=== PATIENT | female | born 1975 | race Caucasian/White ===

== ENCOUNTER 2016-07-23 13:27 | Inpatient (IN) | payer OTHER, SELFPAY ==
--- NOTE | ~2016-07-23 | HP ---
History And Physical [place] [address] [facility] [place] [address] NAME: CARINA ALEJO : 73 STATUS : ADM IN [facility]#: [id number] AGE: 41 ADM/REG DATE : 07/23/16 MR#: [id number] REPORT SERV DATE: 07/23/16 DICTATED BY: FAMILIA MEDEIROS DATE: 07/23/16 REPORT STATUS : Draft TRANSCRIBED BY: MODChristopher DATE: 07/23/16 DATE OF ADMISSION: 07/23/2016 CHIEF COMPLAINT: Chest pain. BRIEF HISTORY OF PRESENT ILLNESS: The patient is a 41-year-old white female, discharged yesterday from the Urology Service, status post a left-sided percutaneous nephrostomy tube and ureteral stent with stone extraction, apparently the patient wanted to go home. When she got home, she was in her usual state of health. This morning, she began having shortness of breath and chest pain, and when she came in, she was slightly hypoxic, so a CTA in the emergency room was done of this patient. It revealed multiple segmental filling defects in the right lower lobe, right middle lobe, and left upper lobe, so she has been referred to the Hospitalist Service for further treatment and evaluation. She denies any fever or chills. She has had significant nausea and vomiting. She denies much pain in her chest at this time. She has not had any diarrhea. She had noticed some swelling in her lower extremities. She has not traveled anywhere. She does not use any control pills nor should she smoke. REVIEW OF SYSTEMS: Otherwise, a 12-point review of systems is completely negative. PAST MEDICAL HISTORY: Significant for hypothyroidism, gastroesophageal reflux, hirsutism, obesity, nephrolithiasis, and gastroesophageal reflux. PAST SURGICAL HISTORY: Significant for oral surgery for teeth and recent percutaneous nephrostomy tube. ALLERGIES: CODEINE AND SULFA. HOME MEDICATIONS: Zyrtec 10 mg once daily, vitamin D 5000 units once daily, Cipro 500 mg twice daily, Nexium 20 mg once daily, hydrocodone 5/325 p.r.n. for pain, oxycodone 5/325 p.r.n. for pain, Phenergan 25 mg every four hours p.r.n., and [place] Thyroid 60 mg p.o. daily. SOCIAL HISTORY: The patient lives at home, fully functional in all ADLs. Denies use of alcohol, tobacco, or illicit substances. FAMILY HISTORY: No history of clotting disorders. PHYSICAL EXAMINATION: GENERAL: Young white female, lying on a gurney, appears to be in no obvious respiratory distress. She is awake and alert. She is oriented. Saturation of 96% on room air. VITAL SIGNS: Blood pressure is 142/80, temperature is 98.5, pulse of 63, and saturation of once again 96% on room air. HEENT: Head is normocephalic and atraumatic. Pupils are equal, round, and reactive to light. Extraocular muscles are intact. Sclerae are anicteric. Conjunctivae are normal. History And Physical [address] [place]. [address] NAME: CARINA ALEJO : 73 STATUS : ADM IN [facility]#: [id number] AGE: 41 ADM/REG DATE : 07/23/16 MR#: [id number] REPORT SERV DATE: 07/23/16 DICTATED BY: FAMILIA MEDEIROS DATE: 07/23/16 REPORT STATUS : Draft TRANSCRIBED BY: ARUNA DATE: 07/23/16 Oropharynx without lesion. Tongue protrusion midline. Uvula midline. NECK: Supple. No jugular venous distention. No carotid bruits or thyromegaly is appreciated. No lymphadenopathy in the neck is palpable. HEART: Regular rate rhythm. No murmurs, rubs, or gallops are heard. PMI nondisplaced. LUNGS: Clear to auscultation, both anteriorly and posteriorly without rales, rhonchi, wheezing, or consolidation. ABDOMEN: Obese, soft, and nontender. Good bowel sounds. Left-sided percutaneous nephrostomy tube is in place. There is a pink colored urine in the Kyle bag. EXTREMITIES: Without cyanosis, clubbing, or edema. No Homans sign. No palpable cords. NEUROLOGIC: Seems to be grossly intact. LABORATORY DATA: White count is 18,000, hemoglobin of 13.4, hematocrit of 41.9, and platelet count is 643,000. Sodium 143, potassium 3.8, chloride 103, bicarb 29, BUN 16, creatinine 0.98, glucose of 201, total bilirubin 0.5, alkaline phosphatase is 117, ALT 28, AST 23, and lipase 238. CT of the chest, bilateral pulmonary emboli as noted above in the HPI. IMPRESSION: 1. Bilateral pulmonary emboli, segmental sections. 2. Percutaneous nephrostomy tube and nephrolithiasis surgery done two days ago. 3. Hypothyroidism, postsurgical. 4. Obesity. 5. Hirsutism. 6. Gastroesophageal reflux. PLAN: The patient will be admitted. IV heparin will be initiated. I have already discussed her care with Dr. Taylor. We will not give her a heparin bolus in light of her recent surgery. We will start her on IV fluids. We will continue home medications including her Cipro in the oral form. I do not think that this lady has any sepsis or other acute evidence of infection. We will not give vancomycin or Zosyn at this time. Home medications have been addressed personally by me. The patient remains a full code. SV/MODL Familia Medeiros M.D. / [id number] CC: Davina Crowe PA-C Oliver Benton III, M.D.
--- NOTE | ~2016-07-23 | DS ---
Discharge Summary [facility] [address] [place]. [address] NAME: CARINA ALEJO : [birth year] STATUS : ADM IN [facility]#: [id number] AGE: 41 ADM/REG DATE : 07/23/16 MR#: [id number] REPORT SERV DATE: 07/25/16 DICTATED BY: DIVYA MONGE DATE: 07/25/16 REPORT STATUS : Draft TRANSCRIBED BY: MODL DATE: 07/25/16 ADMISSION DATE: 07/23/2016 DISCHARGE DATE: 07/25/2016 FINAL HOSPITAL DIAGNOSES: 1. Status post nephrostomy tube. 2. Pulmonary embolism. CONSULTATIONS: Urology. PROCEDURES: 1. Echocardiogram done on 07/24 showing poor acoustic windows, normal LV systolic function, EF 60-65%. Normal right ventricular systolic function. No evidence of valvular regurgitation or stenosis. 2. CTA of the abdomen and pelvis done on the showing evidence of recent instrumentation of the left kidney with air in the collecting system. No acute hydronephrosis, one small stone. On the right side, there are multiple small stones. No active hydronephrosis. However, collecting system appears inflamed. Gallstones are noted. 3. 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 4. Lower extremity Dopplers done on the showing no evidence of acute right lower- extremity DVT, no evidence of acute left lower extremity DVT. CURRENT PHYSICAL FINDINGS AND HPI: Please see dictated H and P by Dr. Medeiros. In brief, the patient is a 41-year-old female who was hospitalized on the for treatment of kidney stones. She was discharged and then re-presented the following day with complaint of shortness of breath and chest pain resulting in the diagnosis of PE. HOSPITAL COURSE: The patient was admitted after the above CT findings. It was elected to place her on heparin at that time for the PE and Urology was consulted to comanage the patient given her recent surgical procedures. She fortunately had no problem with significant hematuria or bleeding post procedure and tolerated the heparin well. Her nephrostomy tube was plugged. It was elected then on the to start her on Eliquis 5 b.i.d. This dose was selected for bleeding risk given her recent instrumentation procedure, indwelling stent and planned removal in the next several days. She tolerated this well also and the Eliquis was discontinued. She was re-evaluated by Urology and Hospitalist Service on the and was felt stable for discharge. She was on room air. No pain or cramping or swelling in her lower extremities. Her questions on Eliquis use, followup, and duration of treatment were answered. DISPOSITION: She is discharged home. She has a followup appointment with Nephrology on Sunday at 3:45 for the nephrostomy tube removal. In the interim, she will report any significant bleeding or problems with the tube to them. She will follow up with her PCP in Discharge Summary [address] [address] NAME: CARINA ALEJO : 73 STATUS : ADM IN [facility]#: [id number] AGE: 41 ADM/REG DATE : 07/23/16 MR#: [id number] REPORT SERV DATE: 07/25/16 DICTATED BY: DIVYA MONGE DATE: 07/25/16 REPORT STATUS : Draft TRANSCRIBED BY: MODL DATE: 07/25/16 10-14 days for a post hospital followup. MEDICATIONS: Eliquis 5 b.i.d., Cipro 500 b.i.d., Zyrtec 10, Nexium 20, [place] Thyroid 60, Phenergan 25, Percocet 5/325 q.4 p.r.n., hydrocodone 5/325 q.4 p.r.n., vitamin D5. TLF/MODL Divya Monge M.D. / [id number] CC: Davina Crowe PA-C
[~2016-07-23 13:27] MED LIST: ARMOUR THYRO60 MG PO; CIP5 PO; DRAMAMINE25 MG PO; NEXIUM40 PO; NORCO1 TA1 PO; PR25 PO; PRILOSEC40 MG PO; VITAMIN D1000 UNI1 PO
[2016-07-23 15:15] LABS: BASOPHILS 0.2 %; BASOPHILS ABSOLUTE 0.03 10/3/uL (0.0-0.16); EOSINOPHILS 0 %; ER CBC TAT 0 Hrs 08 Mins; IMMATURE GRANULOCYTES 0.3 %; IMMATURE GRANULOCYTES ABSOLUTE 0.06 10/3/uL (0.0-0.11); LYMPHOCYTES 6.5 %; LYMPHOCYTES ABSOLUTE 1.17 10/3/uL (0.67-4.30); MEAN CORPUSCULAR HEMOGLOB 26.4 pg (26.0-34.0); MEAN CORPUSCULAR VOLUME 82.6 fL (80-100); MONOCYTES 2.8 %; NEUTROPHILS 90.2 %; NEUTROPHILS ABSOLUTE 16.19 10/3/uL (2.02-8.40); PLATELET COUNT 643 10/3/uL (150-400); RBC DISTRIBUTION WIDTH 14.9 % (12.0-16.0)
[2016-07-23 15:20] LABS: HEMATOCRIT 41.9 % (36.0-48.0); HEMOGLOBIN 13.4 g/dL (12.0-16.0); MANUAL DIFF NO %; RED CELL COUNT 5.07 10/6/uL (4.0-5.6)
[2016-07-23 15:30] LABS: ALBUMIN 3.2 G/DL (3.5-5.0); ALKALINE PHOSPHATASE 117 U/L (45-117); BUN (BLOOD UREA NITROGEN) 16 MG/DL (6-23); CALCIUM, SERUM 10.5 MG/DL (8.5-10.4); CHLORIDE, SERUM 103 MMOL/L (96-112); CREATININE 0.98 MG/DL (0.55-1.02); GFR AFRICAN AMERICAN 82 ML/MIN (>=60); GFR NON AFRICAN AMERICAN 71 ML/MIN (>=60); POTASSIUM, SERUM 3.8 MMOL/L (3.5-5.3); SGPT(ALT) 28 U/L (5-65); SODIUM, SERUM 141 MMOL/L (135-148); TOTAL BILIRUBIN 0.5 MG/DL (0-1.2)
[2016-07-23 15:31] LABS: A/G RATIO 0.7 (0.7-1.9); CO2 (CARBON DIOXIDE) 29 MMOL/L (24-34); GLOBULIN 4.6 G/DL (2.5-4.1); GLUCOSE, SERUM 201 MG/DL (60-99); SGOT(AST) < 3 U/L (5-40); TOTAL PROTEIN 7.8 G/DL (6.0-8.5)
[2016-07-23] MEDS ORDERED: ZYRTEC ALLGY10 MG PO (15:56)
[2016-07-23] MEDS ORDERED: CIP5 PO (15:56)
[2016-07-23] MEDS ORDERED: PR25 PO (15:57)
[2016-07-23] MEDS ORDERED: NORCO1 TA1 PO (16:00)
[2016-07-23] MEDS ORDERED: PCET PO (16:00)
[2016-07-23] MEDS ORDERED: ARMOUR THYRO60 MG PO (16:01)
[2016-07-23] MEDS ORDERED: NEXIUM20 M1 PO (16:01)
[2016-07-23] MEDS ORDERED: D 5000 PO (16:01)
[2016-07-23 16:17] LABS: ASCORBIC ACID (UR NOT ORDER) NEG (NEG); BILIRUBIN, URINE NEGATIVE (NEG); KETONE, URINE 20 MG/DL (NEG); LEUKOCYTE ESTERASE(NOT OR SMALL (NEG); NITRITE (URINE) NEG (NEG); WBC (NOT ORDERED) (RFLEX) 11 (0-5)
[2016-07-23 21:00] LABS: PHOSPHORUS, SERUM 3.2 MG/DL (2.5-4.5)
[2016-07-24 06:29] LABS: ALBUMIN 2.7 G/DL (3.5-5.0); CALCIUM, SERUM 10.2 MG/DL (8.5-10.4); CHLORIDE, SERUM 107 MMOL/L (96-112); CO2 (CARBON DIOXIDE) 28 MMOL/L (24-34); CREATININE 0.94 MG/DL (0.55-1.02); GFR AFRICAN AMERICAN 87 ML/MIN (>=60); GFR NON AFRICAN AMERICAN 75 ML/MIN (>=60); GLUCOSE, SERUM 175 MG/DL (60-99); POTASSIUM, SERUM 3.2 MMOL/L (3.5-5.3); SODIUM, SERUM 144 MMOL/L (135-148)
[2016-07-24 06:30] LABS: BUN (BLOOD UREA NITROGEN) 12 MG/DL (6-23); PHOSPHORUS, SERUM 2.1 MG/DL (2.5-4.5)
[2016-07-24 06:40] LABS: BASOPHILS 0.2 %; BASOPHILS ABSOLUTE 0.03 10/3/uL (0.0-0.16); EOSINOPHILS 0.2 %; EOSINOPHILS ABSOLUTE 0.03 10/3/uL (0.0-0.53); HEMATOCRIT 38.4 % (36.0-48.0); IMMATURE GRANULOCYTES 0.3 %; IMMATURE GRANULOCYTES ABSOLUTE 0.05 10/3/uL (0.0-0.11); LYMPHOCYTES 23.1 %; LYMPHOCYTES ABSOLUTE 3.83 10/3/uL (0.67-4.30); MANUAL DIFF NO %; MEAN CORPUS HGB CONC 31.3 g/dL (32.0-36.0); MEAN CORPUSCULAR HEMOGLOB 25.8 pg (26.0-34.0); MEAN CORPUSCULAR VOLUME 82.4 fL (80-100); MEAN PLATELET VOLUME 9.5 fL (9.2-13.0); MONOCYTES 8.4 %; MONOCYTES ABSOLUTE 1.39 10/3/uL (0.21-1.20); NEUTROPHILS 67.8 %; NEUTROPHILS ABSOLUTE 11.27 10/3/uL (2.02-8.40); PLATELET COUNT 649 10/3/uL (150-400); RED CELL COUNT 4.66 10/6/uL (4.0-5.6); WHITE BLOOD CELLS 16.6 10/3/uL (4.5-10.5)
[2016-07-25 07:03] LABS: BASOPHILS 0.3 %; BASOPHILS ABSOLUTE 0.05 10/3/uL (0.0-0.16); EOSINOPHILS 0.8 %; EOSINOPHILS ABSOLUTE 0.15 10/3/uL (0.0-0.53); HEMATOCRIT 36.4 % (36.0-48.0); HEMOGLOBIN 11.4 g/dL (12.0-16.0); IMMATURE GRANULOCYTES 0.3 %; IMMATURE GRANULOCYTES ABSOLUTE 0.06 10/3/uL (0.0-0.11); LYMPHOCYTES 23.6 %; LYMPHOCYTES ABSOLUTE 4.28 10/3/uL (0.67-4.30); MEAN CORPUS HGB CONC 31.3 g/dL (32.0-36.0); MEAN CORPUSCULAR HEMOGLOB 26.1 pg (26.0-34.0); MEAN CORPUSCULAR VOLUME 83.5 fL (80-100); MEAN PLATELET VOLUME 9.2 fL (9.2-13.0); MONOCYTES 8.2 %; MONOCYTES ABSOLUTE 1.49 10/3/uL (0.21-1.20); NEUTROPHILS 66.8 %; NEUTROPHILS ABSOLUTE 12.14 10/3/uL (2.02-8.40); PLATELET COUNT 563 10/3/uL (150-400); RBC DISTRIBUTION WIDTH 15.1 % (12.0-16.0); RED CELL COUNT 4.36 10/6/uL (4.0-5.6); WHITE BLOOD CELLS 18.2 10/3/uL (4.5-10.5)
[2016-07-25 07:06] LABS: MANUAL DIFF NO %
[2016-07-25 07:09] LABS: ALBUMIN 2.7 G/DL (3.5-5.0); CALCIUM, SERUM 10.3 MG/DL (8.5-10.4); CHLORIDE, SERUM 109 MMOL/L (96-112); CO2 (CARBON DIOXIDE) 26 MMOL/L (24-34); CREATININE 0.87 MG/DL (0.55-1.02); GFR AFRICAN AMERICAN 95 ML/MIN (>=60); GFR NON AFRICAN AMERICAN 82 ML/MIN (>=60); PHOSPHORUS, SERUM 2.2 MG/DL (2.5-4.5); POTASSIUM, SERUM 3.6 MMOL/L (3.5-5.3); SODIUM, SERUM 145 MMOL/L (135-148)
[2016-07-25 07:11] LABS: BUN (BLOOD UREA NITROGEN) 6 MG/DL (6-23); GLUCOSE, SERUM 68 MG/DL (60-99)
[2016-07-25] MEDS ORDERED: ELIQUIS 5 MG TAB5 MG PO (10:55)
[2016-07-25] MEDS ORDERED: ZOFRAN4 (10:57)
== END 2016-07-25 11:53 | disposition home or self-care (01) | DRG 659 ==
LOC: ER 13:27 → 4SO 18:20
PROVIDERS: Hospitalist; Internal Medicine
PROC: 0TP98DZ Removal of Intraluminal Device from Ureter, Via Natural or Artificial Opening Endoscopic (ICD-10-PCS; principal; 2016-07-20)
PROC: 0TC18ZZ Extirpation of Matter from Left Kidney, Via Natural or Artificial Opening Endoscopic (ICD-10-PCS; principal; 2016-07-20)
PROC: 0T9430Z Drainage of Left Kidney Pelvis with Drainage Device, Percutaneous Approach (ICD-10-PCS; principal; 2016-07-20)
DX: N13.2 Hydronephrosis with renal and ureteral calculous obstruction (principal); I26.99 Other pulmonary embolism without acute cor pulmonale; Z68.41 Body mass index [BMI] 40.0-44.9, adult; T81.89XA Other complications of procedures, not elsewhere classified, initial encounter; Y84.6 Urinary catheterization as the cause of abnormal reaction of the patient, or of later complication, without mention of misadventure at the time of the procedure; E66.9 Obesity, unspecified; K21.9 Gastro-esophageal reflux disease without esophagitis; E89.0 Postprocedural hypothyroidism; L68.0 Hirsutism; Y83.6 Removal of other organ (partial) (total) as the cause of abnormal reaction of the patient, or of later complication, without mention of misadventure at the time of the procedure; Z87.442 Personal history of urinary calculi; E66.01 Morbid (severe) obesity due to excess calories; Z88.2 Allergy status to sulfonamides; Z88.5 Allergy status to narcotic agent; Z79.899 Other long term (current) drug therapy
CPT/HCPCS: 50433; 71275; 74176; 80048; 80053; 80069; 81001; 82365; 83690; 83735; 84100; 84132; 84703; 85014; 85018; 85025; 85049; 85610; 85730; 87086; 93970; 96374; 96375; 96376; 99285; A9270-GY; C1725; C1758; C1769; C1892; C1894; C8929; G0378; J1170; J1956; J2175; J2250; J2370; J2405; J2543; J2550; J2710; J3010; J3370; Q9957; Q9967